=== PATIENT | male | born 2000 | race Caucasian/White ===

== ENCOUNTER 2022-03-22 13:43 | Emergency (ER) | payer BC, SELFPAY ==
[2022-03-22 13:58] VITALS: BP 128/81; PULSE 74; RESP 17; TEMP 36.8; O2SAT 99
--- NOTE | 2022-03-22 14:07 | W.ED.GENAD ---
Discharge Plan Disposition Patient Disposition: HOME Condition: Stable Discharge Details Clinical Impression: Cognitive complaints Primary Care Provider: Unknown,Unknown ED Provider: Manny Beth Home Meds and New Rx's Prescriptions: Continued levetiracetam 500 mg tablet 500 tab PO BID Label Comments: TAKE 1 TABLET BY MOUTH TWICE A DAY levetiracetam 1,000 mg tablet 1,000 tab PO BID Label Comments: TAKE 1 TABLET BY MOUTH TWO TIMES DAILY, TAKEN WITH 500MG TAB Discharge Instructions Additional Instructions: Please watch for new or worsening symptoms and return to the ER for any concerns. I would like you to follow plan set forth for you by the mental health team Discharge Data Discharge Date/Time-TO BE ENTERED AT DEPARTURE: 03/22/22 15:41 Medical Decision Making This is a 21-year-old male, past medical history of seizures, reporting ongoing concentration and cognitive issues, concerned that his mental health diagnoses are incorrect and his neurologist recommended establishing new mental health care. He lives in [place] but will be here for the next several months. He currently has no acute concerns or complaints. Denies any suicidal or homicidal ideations. Reports feeling safe. At this time I do not foresee a hospitalization, he has no medical concerns at this time, and I do not believe that laboratory values are indicated. Will request a mental health evaluation. Mental health evaluation completed, please see their note. They will check in on the patient over the weekend by the phone and they will set him up for outpatient resources and a more thorough psychiatric evaluation. Patient is quite comfortable this plan and has no additional questions or concerns Standard discharge and return precautions were provided. Patient understands, is agreeable to this plan, and has no additional questions or concerns upon discharge. This documentation was generated using [employer] system, please disregard any oddities of phrase or misspellings. HPI General Mode of arrival: ambulatory. Date/Time Provider Initiated Documentation: 03/22/22 13:45. Limitations to Documentation: no limitations. Information obtained by: patient. HPI Narrative: This is a 21-year-old gentleman with a past medical history of seizure disorder, what he describes as history of anxiety, depression, OCD but concerned that he has not had the appropriate diagnosis, presenting to the ER for a mental health evaluation. Patient typically lives in the [place] and was evaluated there by his neurology team, had a MRI, etc. and subsequently after work-up was normal they recommended a mental health evaluation for the patient's cognitive concerns. Patient states that he is in [place] for the next several months and would like to initiate this process here. He currently has no acute medical concerns or complaints. He denies any suicidal or homicidal ideations and reports feeling safe. Related Data Home Medications Medication Instructions Recorded Confirmed levetiracetam 1,000 mg tablet 1,000 tab PO BID 03/22/22 03/22/22 levetiracetam 500 mg tablet 500 tab PO BID 03/22/22 03/22/22 Allergies Allergy/AdvReac Type Severity Reaction Status Date / Time Penicillins Allergy Intermediate Unverified 03/22/22 14:08 General Stated Complaint: PsychEval YOANA: 2 Review of Systems Constitutional Constitutional: Denies fever(s) and Denies headache(s) ENT Ears, Nose, Mouth, and Throat: Denies headache(s) Cardiovascular Cardiovascular: Denies chest pain and Denies dyspnea Respiratory Respiratory: Denies cough and Denies dyspnea Gastrointestinal Gastrointestinal: Denies abdominal pain, Denies nausea and Denies vomiting Integumentary/Breasts Skin/Breast: Denies rash Neurologic Neurologic: Denies headache(s) Psychiatric Psychiatric: Denies homicidal ideation and Denies suicidal ideation PFSH All Active Problems Cognitive complaints (Acute) Social History Smoking/Tobacco Use Status: Never Smoking risk assessment performed?: Yes Substance use type: does not use Do you feel safe at home: Yes Do you feel safe in your relationship?: Yes Exam Const General: cooperative, healthy appearing, comfortable and no acute distress Orientation: alert, awake and oriented x3 [facility] Head: normal to inspection, normocephalic and atraumatic Mouth: moist mucous membranes Eyes General: appearance normal, both eyes and all related structures Conjunctivae: conjunctivae normal Neck Neck: normal visual inspection, full ROM, trachea midline and supple Resp Effort & Inspection: normal respiratory effort and able to speak in complete sentences Auscultation: clear to auscultation bilaterally Cardio Rate: regular rate Rhythm: regular rhythm GI Palpation: soft and nontender Skin General skin exam: no rashes or lesions noted Neuro General: patient alert, patient awake, patient oriented x3, moves all extremities and no focal motor deficits Cognition: normal cognition Speech: speech normal Gait: normal gait Motor: muscle tone normal throughout Sensory Exam: no sensory deficits noted Extrem General: normal to inspection and full ROM Psych Appearance: grossly normal Mental Status: mental status grossly normal Speech and Movement: speech and movement normal Mood: congruent mood Affect: normal affect Attitude: cooperative Thought Process: normal Thought Content: normal Insight: insight good Judgment: judgment good Course Vital Signs Vital signs: Vital Signs Temperature 36.8 C 03/22/22 13:58 Pulse 74 03/22/22 13:58 Respiratory Rate 17 03/22/22 13:58 Blood Pressure 128/81 03/22/22 13:58 Pulse Oximetry 99 03/22/22 13:58 Temperature 36.8 C 03/22/22 13:58 Temperature Source Oral 03/22/22 13:58 Pulse 74 03/22/22 13:58 Respiratory Rate 17 03/22/22 13:58 Respiratory Effort 03/22/22 14:05 Blood Pressure 128/81 03/22/22 13:58 Blood Pressure Position Sitting 03/22/22 13:58 Pulse Oximetry 99 03/22/22 13:58 Oxygen Delivery Method Room Air 03/22/22 13:58 Oxygen Flow Rate 0 03/22/22 13:58 Pain Level 0 03/22/22 13:58
--- NOTE | 2022-03-22 15:33 | PDOC.MHCN_ITS ---
Date of service: 03/22/22 Time of Service: 15:33 Mental Health Crisis Note Presenting Issue How did you arrive at the ED and why did you come: Client arrived at [facility] Ed for psych evaluation after being diagnosed with mood disroder in [place]. Precipitating Factors Client denies SI/HI Disposition BEHAVIOR: Client is standing up in room dressed in street clothes when this typewriters functional tester arrives via zoom.Client is cooperative answering all questions that are asked of him during the assessment. EYE CONTACT: Good. MOOD: Anxious AFFECT: Normal APPETITE: Poor SLEEP(trouble falling/staying asleep: Distorted Plan Client does not meet criteria for inpatient hospitalization and reports that he is not interested. Client is interested in getting full psychological exam to determine what kind of mood disorder he has. Client will work on establishing PCP in this area as he is new to the area and ask for a psychiatry referral. This typewriters functional tester will also do psychiatry referral, client is aware of extended wait list at [facility]. Client will call [facility] tomorrow at 3:00 p.m. for check-in phone call at [phone] Signature Clinician's Name/Title: Pearl Chisholm, [facility] Emergency Services Clinician
== END 2022-03-22 15:41 | disposition home or self-care (01) ==
PROVIDERS: Emergency Provider Physician Assistant
DX: R41.9 Unspecified symptoms and signs involving cognitive functions and awareness (principal); G40.909 Epilepsy, unspecified, not intractable, without status epilepticus
CPT/HCPCS: 99283; 99282